=== PATIENT | female | born 1945 | race Caucasian/White ===

== ENCOUNTER 2021-04-08 11:33 | Inpatient (IN) ==
[2021-04-10] MEDS ORDERED: D5% in Water 1,000 ML IVC PRN (18:15)
[2021-04-10] MEDS ORDERED: *HR* Dextrose 50 % in Water (Syg) 50 ML SYRINGE IVP PRN (18:15)
[2021-04-10] MEDS ORDERED: Dextrose Gel 15 GM/37.5 ML TUBE PO PRN ×2 (18:15)
[2021-04-10] MEDS ORDERED: Insulin DETEMIR 100 UNIT/ML per UNIT SUBQ ONE (21:00)
[2021-04-10] MEDS: Divalproex (12 HR) 250 MG TABLET PO SCH (21:02)
[2021-04-10] MEDS: QUEtiapine Fumarate 100 MG TABLET PO SCH (21:02)
[2021-04-10] MEDS: Insulin LISPRO 300 UNITS/3 ML VIAL SUBQ SCH (21:07)
[2021-04-11] MEDS: Insulin LISPRO 300 UNITS/3 ML VIAL SUBQ SCH ×4 (08:19→20:03)
[2021-04-11 08:26] LABS: Calcium 9.1 mg/dL (8.6-10.3); Potassium 3.9 mEq/L (3.5-5.1)
[2021-04-11 08:28] LABS: Basophils % 0.5 %; Eosinophils # 0.4 K/mcL (0.0-0.6); Eosinophils % 4.9 %; Hematocrit 28.9 % (35.3-44.9); Hemoglobin 9.2 g/dL (11.5-15.4); Immature Granulocytes % 0.8 % (0-4); Lymphocytes # 2.4 K/mcL (0.6-4.6); Lymphocytes % 33.3 %; Mean Corpuscular HGB Conc 31.8 g/dL (31.6-35.5); Mean Corpuscular Hemoglobin 29.4 pg (28.0-33.3); Mean Corpuscular Volume 92.3 fL (83.0-100.0); Mean Platelet Volume 10.1 fL (9.4-12.4); Monocytes # 1.1 K/mcL (0.0-1.3); Monocytes % 15.1 %; Neutrophils # 3.3 K/mcL (1.6-8.9); Platelet Count 329 K/mcL (140-400); Red Blood Count 3.13 M/mcL (3.82-4.97); Red Cell Distribution Width 14.2 % (11.5-14.5); Segmented Neutrophils % 45.4 %; White Blood Count 7.3 K/mcL (4.3-11.1)
[2021-04-11] MEDS: Cholecalciferol (D-3) 1,000 UNIT (25MCG) TABLET PO SCH (08:38)
[2021-04-11] MEDS: *HR* Rivaroxaban 10 MG TABLET PO SCH (08:38)
[2021-04-11] MEDS: GlipiZIDE 5 MG TABLET PO SCH (08:38)
[2021-04-11] MEDS: QUEtiapine Fumarate 100 MG TABLET PO SCH ×2 (08:39→20:01)
[2021-04-11] MEDS: Ascorbic Acid 500 MG TABLET PO SCH (08:39)
[2021-04-11] MEDS: *HR* SitaGLIPtin 25 MG TABLET PO SCH (08:39)
[2021-04-11] MEDS: PARoxetine 20 MG TABLET PO SCH (08:39)
[2021-04-11] MEDS: Divalproex (12 HR) 250 MG TABLET PO SCH ×2 (08:39→20:01)
[2021-04-11] MEDS: QUEtiapine Fumarate 25 MG TABLET PO SCH (08:39)
[2021-04-11] MEDS ORDERED: *HR* Pioglitazone 30 MG TABLET PO SCH (09:00)
[2021-04-11] MEDS: *HR* Pioglitazone 15 MG TABLET PO SCH (09:06)
[2021-04-11] MEDS ORDERED: hydrALAZINE 25 MG TABLET PO PRN (15:51)
[2021-04-11] MEDS: Acetaminophen 325 MG TABLET PO PRN (16:05)
[2021-04-11] MEDS: Insulin DETEMIR 100 UNIT/ML X5UNITS SUBQ SCH (20:02)
[2021-04-12 07:56] LABS: Calcium 9.1 mg/dL (8.6-10.3); Potassium 4.4 mEq/L (3.5-5.1)
[2021-04-12] MEDS: Insulin LISPRO 300 UNITS/3 ML VIAL SUBQ SCH ×4 (08:35→20:23)
[2021-04-12] MEDS: Divalproex (12 HR) 250 MG TABLET PO SCH ×2 (08:44→20:24)
[2021-04-12] MEDS: QUEtiapine Fumarate 100 MG TABLET PO SCH ×2 (08:44→20:22)
[2021-04-12] MEDS: Cholecalciferol (D-3) 1,000 UNIT (25MCG) TABLET PO SCH (08:44)
[2021-04-12] MEDS: QUEtiapine Fumarate 25 MG TABLET PO SCH (08:44)
[2021-04-12] MEDS: *HR* Pioglitazone 15 MG TABLET PO SCH (08:45)
[2021-04-12] MEDS: Ascorbic Acid 500 MG TABLET PO SCH (08:45)
[2021-04-12] MEDS: *HR* Rivaroxaban 10 MG TABLET PO SCH (08:45)
[2021-04-12] MEDS: PARoxetine 20 MG TABLET PO SCH (08:45)
[2021-04-12] MEDS: GlipiZIDE 5 MG TABLET PO SCH (08:45)
[2021-04-12] MEDS: *HR* SitaGLIPtin 25 MG TABLET PO SCH (08:46)
[2021-04-12] MEDS: Acetaminophen 325 MG TABLET PO PRN (12:28)
[2021-04-12] MEDS: Insulin DETEMIR 100 UNIT/ML X5UNITS SUBQ SCH (20:22)
[2021-04-13] MEDS: Acetaminophen 325 MG TABLET PO PRN ×3 (00:11→17:25)
[2021-04-13] MEDS: PARoxetine 20 MG TABLET PO SCH (08:49)
[2021-04-13] MEDS: *HR* SitaGLIPtin 25 MG TABLET PO SCH (08:49)
[2021-04-13] MEDS: Ascorbic Acid 500 MG TABLET PO SCH (08:49)
[2021-04-13] MEDS: QUEtiapine Fumarate 25 MG TABLET PO SCH (08:49)
[2021-04-13] MEDS: GlipiZIDE 5 MG TABLET PO SCH (08:49)
[2021-04-13] MEDS: Insulin LISPRO 300 UNITS/3 ML VIAL SUBQ SCH ×4 (08:49→21:26)
[2021-04-13] MEDS: *HR* Pioglitazone 15 MG TABLET PO SCH (08:49)
[2021-04-13] MEDS: Divalproex (12 HR) 250 MG TABLET PO SCH ×2 (08:49→21:43)
[2021-04-13] MEDS: *HR* Rivaroxaban 10 MG TABLET PO SCH (08:50)
[2021-04-13] MEDS: Cholecalciferol (D-3) 1,000 UNIT (25MCG) TABLET PO SCH (08:50)
[2021-04-13] MEDS: QUEtiapine Fumarate 100 MG TABLET PO SCH ×2 (08:50→21:42)
[2021-04-13] MEDS ORDERED: haloperidoL 1 MG TABLET PO PRN (11:30)
[2021-04-13] MEDS ORDERED: haloperidoL 1 MG TABLET PO STA (13:04)
[2021-04-13] MEDS: haloperidoL 1 MG TABLET PO PRN (18:25)
[2021-04-13] MEDS: Insulin DETEMIR 100 UNIT/ML X5UNITS SUBQ SCH (21:43)
[2021-04-14] MEDS: Divalproex (12 HR) 250 MG TABLET PO SCH ×2 (09:20→20:09)
[2021-04-14] MEDS: *HR* Pioglitazone 15 MG TABLET PO SCH (09:20)
[2021-04-14] MEDS: Ascorbic Acid 500 MG TABLET PO SCH (09:21)
[2021-04-14] MEDS: GlipiZIDE 5 MG TABLET PO SCH (09:21)
[2021-04-14] MEDS: Cholecalciferol (D-3) 1,000 UNIT (25MCG) TABLET PO SCH (09:21)
[2021-04-14] MEDS: QUEtiapine Fumarate 25 MG TABLET PO SCH (09:21)
[2021-04-14] MEDS: *HR* SitaGLIPtin 25 MG TABLET PO SCH (09:21)
[2021-04-14] MEDS: *HR* Rivaroxaban 10 MG TABLET PO SCH (09:21)
[2021-04-14] MEDS: QUEtiapine Fumarate 100 MG TABLET PO SCH ×2 (09:21→20:09)
[2021-04-14] MEDS: PARoxetine 20 MG TABLET PO SCH (09:22)
[2021-04-14] MEDS: Insulin LISPRO 300 UNITS/3 ML VIAL SUBQ SCH ×4 (09:56→20:05)
[2021-04-14] MEDS ORDERED: polyethylene glycoL 3350 17 GM POWD.PACK PO PRN (10:18)
[2021-04-14] MEDS: Acetaminophen 325 MG TABLET PO PRN (18:05)
[2021-04-14] MEDS: haloperidoL 1 MG TABLET PO PRN (22:09)
[2021-04-14] MEDS: Insulin DETEMIR 100 UNIT/ML X5UNITS SUBQ SCH (22:11)
[2021-04-15] MEDS: QUEtiapine Fumarate 100 MG TABLET PO SCH ×2 (08:13→21:09)
[2021-04-15] MEDS: PARoxetine 20 MG TABLET PO SCH (08:13)
[2021-04-15] MEDS: Divalproex (12 HR) 250 MG TABLET PO SCH (08:13)
[2021-04-15] MEDS: GlipiZIDE 5 MG TABLET PO SCH (08:13)
[2021-04-15] MEDS: Ascorbic Acid 500 MG TABLET PO SCH (08:13)
[2021-04-15] MEDS: Cholecalciferol (D-3) 1,000 UNIT (25MCG) TABLET PO SCH (08:13)
[2021-04-15] MEDS: *HR* Pioglitazone 15 MG TABLET PO SCH (08:13)
[2021-04-15] MEDS: *HR* SitaGLIPtin 25 MG TABLET PO SCH (08:14)
[2021-04-15] MEDS: *HR* Rivaroxaban 10 MG TABLET PO SCH (08:14)
[2021-04-15] MEDS: QUEtiapine Fumarate 25 MG TABLET PO SCH (08:14)
[2021-04-15] MEDS: Insulin LISPRO 300 UNITS/3 ML VIAL SUBQ SCH ×4 (08:19→21:13)
[2021-04-15 08:54] LABS: Basophils # 0.1 K/mcL (0.0-0.2); Basophils % 0.8 %; Eosinophils # 0.2 K/mcL (0.0-0.6); Eosinophils % 3.6 %; Hematocrit 31.9 % (35.3-44.9); Hemoglobin 10.1 g/dL (11.5-15.4); Immature Granulocytes % 0.5 % (0-4); Lymphocytes # 1.9 K/mcL (0.6-4.6); Lymphocytes % 29.3 %; Mean Corpuscular HGB Conc 31.7 g/dL (31.6-35.5); Mean Corpuscular Hemoglobin 29.8 pg (28.0-33.3); Mean Corpuscular Volume 94.1 fL (83.0-100.0); Mean Platelet Volume 10.3 fL (9.4-12.4); Monocytes # 0.8 K/mcL (0.0-1.3); Monocytes % 12.2 %; Neutrophils # 3.5 K/mcL (1.6-8.9); Platelet Count 358 K/mcL (140-400); Red Blood Count 3.39 M/mcL (3.82-4.97); Red Cell Distribution Width 14.8 % (11.5-14.5); Segmented Neutrophils % 53.6 %; White Blood Count 6.5 K/mcL (4.3-11.1)
[2021-04-15 09:14] LABS: Calcium 9.2 mg/dL (8.6-10.3); Potassium 4.2 mEq/L (3.5-5.1)
[2021-04-15] MEDS: Acetaminophen 325 MG TABLET PO PRN (12:14)
[2021-04-15] MEDS: haloperidoL 1 MG TABLET PO PRN (12:15)
[2021-04-15] MEDS: Insulin DETEMIR 100 UNIT/ML X5UNITS SUBQ SCH (21:12)
[2021-04-16] MEDS: Divalproex (12 HR) 250 MG TABLET PO SCH ×3 (00:34→20:03)
[2021-04-16] MEDS: Insulin LISPRO 300 UNITS/3 ML VIAL SUBQ SCH ×4 (09:45→20:21)
[2021-04-16] MEDS: PARoxetine 20 MG TABLET PO SCH (09:46)
[2021-04-16] MEDS: Ascorbic Acid 500 MG TABLET PO SCH (09:46)
[2021-04-16] MEDS: *HR* SitaGLIPtin 25 MG TABLET PO SCH (09:46)
[2021-04-16] MEDS: QUEtiapine Fumarate 100 MG TABLET PO SCH ×2 (09:46→20:02)
[2021-04-16] MEDS: Cholecalciferol (D-3) 1,000 UNIT (25MCG) TABLET PO SCH (09:46)
[2021-04-16] MEDS: QUEtiapine Fumarate 25 MG TABLET PO SCH (09:46)
[2021-04-16] MEDS: *HR* Rivaroxaban 10 MG TABLET PO SCH (09:46)
[2021-04-16] MEDS: *HR* Pioglitazone 15 MG TABLET PO SCH (09:47)
[2021-04-16] MEDS: GlipiZIDE 5 MG TABLET PO SCH (09:47)
[2021-04-16] MEDS: haloperidoL 1 MG TABLET PO PRN (11:56)
[2021-04-16] MEDS: Acetaminophen 325 MG TABLET PO PRN (14:05)
[2021-04-16] MEDS: Insulin DETEMIR 100 UNIT/ML X5UNITS SUBQ SCH (20:03)
[2021-04-17] MEDS: Insulin LISPRO 300 UNITS/3 ML VIAL SUBQ SCH ×4 (10:21→21:15)
[2021-04-17] MEDS: *HR* SitaGLIPtin 25 MG TABLET PO SCH (10:21)
[2021-04-17] MEDS: QUEtiapine Fumarate 25 MG TABLET PO SCH (10:22)
[2021-04-17] MEDS: Divalproex (12 HR) 250 MG TABLET PO SCH ×2 (10:22→21:14)
[2021-04-17] MEDS: GlipiZIDE 5 MG TABLET PO SCH (10:22)
[2021-04-17] MEDS: Cholecalciferol (D-3) 1,000 UNIT (25MCG) TABLET PO SCH (10:22)
[2021-04-17] MEDS: QUEtiapine Fumarate 100 MG TABLET PO SCH ×2 (10:22→21:14)
[2021-04-17] MEDS: *HR* Pioglitazone 15 MG TABLET PO SCH (10:22)
[2021-04-17] MEDS: PARoxetine 20 MG TABLET PO SCH (10:22)
[2021-04-17] MEDS: Ascorbic Acid 500 MG TABLET PO SCH (10:22)
[2021-04-17] MEDS: *HR* Rivaroxaban 10 MG TABLET PO SCH (10:22)
[2021-04-17] MEDS: Acetaminophen 325 MG TABLET PO PRN ×2 (12:33→19:01)
[2021-04-17] MEDS: haloperidoL 1 MG TABLET PO PRN ×2 (12:33→19:56)
[2021-04-17] MEDS: Insulin DETEMIR 100 UNIT/ML X5UNITS SUBQ SCH (21:15)
[2021-04-18] MEDS: Insulin LISPRO 300 UNITS/3 ML VIAL SUBQ SCH ×4 (07:57→20:38)
[2021-04-18] MEDS: Divalproex (12 HR) 250 MG TABLET PO SCH ×2 (10:45→20:37)
[2021-04-18] MEDS: *HR* Pioglitazone 15 MG TABLET PO SCH (10:45)
[2021-04-18] MEDS: GlipiZIDE 5 MG TABLET PO SCH (10:45)
[2021-04-18] MEDS: Cholecalciferol (D-3) 1,000 UNIT (25MCG) TABLET PO SCH (10:45)
[2021-04-18] MEDS: *HR* SitaGLIPtin 25 MG TABLET PO SCH (10:45)
[2021-04-18] MEDS: QUEtiapine Fumarate 100 MG TABLET PO SCH ×2 (10:46→20:37)
[2021-04-18] MEDS: PARoxetine 20 MG TABLET PO SCH (10:46)
[2021-04-18] MEDS: *HR* Rivaroxaban 10 MG TABLET PO SCH (10:46)
[2021-04-18] MEDS: Ascorbic Acid 500 MG TABLET PO SCH (10:46)
[2021-04-18] MEDS: QUEtiapine Fumarate 25 MG TABLET PO SCH (10:46)
[2021-04-18] MEDS: Acetaminophen 325 MG TABLET PO PRN (17:30)
[2021-04-18] MEDS: haloperidoL 1 MG TABLET PO PRN (20:37)
[2021-04-18] MEDS: Insulin DETEMIR 100 UNIT/ML X5UNITS SUBQ SCH (20:39)
[2021-04-19] MEDS: Insulin LISPRO 300 UNITS/3 ML VIAL SUBQ SCH ×4 (08:30→20:00)
[2021-04-19] MEDS: Divalproex (12 HR) 250 MG TABLET PO SCH ×2 (08:59→20:02)
[2021-04-19] MEDS: Cholecalciferol (D-3) 1,000 UNIT (25MCG) TABLET PO SCH (08:59)
[2021-04-19] MEDS: Ascorbic Acid 500 MG TABLET PO SCH (09:00)
[2021-04-19] MEDS: *HR* SitaGLIPtin 25 MG TABLET PO SCH (09:00)
[2021-04-19] MEDS: *HR* Rivaroxaban 10 MG TABLET PO SCH (09:00)
[2021-04-19] MEDS: *HR* Pioglitazone 15 MG TABLET PO SCH (09:00)
[2021-04-19] MEDS: QUEtiapine Fumarate 100 MG TABLET PO SCH ×2 (09:01→20:02)
[2021-04-19] MEDS: PARoxetine 20 MG TABLET PO SCH (09:01)
[2021-04-19] MEDS: GlipiZIDE 5 MG TABLET PO SCH (09:01)
[2021-04-19] MEDS: QUEtiapine Fumarate 25 MG TABLET PO SCH (09:01)
[2021-04-19] MEDS: Acetaminophen 325 MG TABLET PO PRN (16:47)
[2021-04-19] MEDS: Insulin DETEMIR 100 UNIT/ML X5UNITS SUBQ SCH (19:57)
[2021-04-19] MEDS: haloperidoL 1 MG TABLET PO PRN (20:02)
[2021-04-20] MEDS: Insulin LISPRO 300 UNITS/3 ML VIAL SUBQ SCH ×4 (07:57→20:16)
[2021-04-20] MEDS: Ascorbic Acid 500 MG TABLET PO SCH (07:57)
[2021-04-20] MEDS: Cholecalciferol (D-3) 1,000 UNIT (25MCG) TABLET PO SCH (07:58)
[2021-04-20] MEDS: *HR* Pioglitazone 15 MG TABLET PO SCH (07:58)
[2021-04-20] MEDS: Divalproex (12 HR) 250 MG TABLET PO SCH ×2 (07:58→19:55)
[2021-04-20] MEDS: QUEtiapine Fumarate 25 MG TABLET PO SCH (07:58)
[2021-04-20] MEDS: *HR* Rivaroxaban 10 MG TABLET PO SCH (07:58)
[2021-04-20] MEDS: GlipiZIDE 5 MG TABLET PO SCH (07:58)
[2021-04-20] MEDS: *HR* SitaGLIPtin 25 MG TABLET PO SCH (07:58)
[2021-04-20] MEDS: QUEtiapine Fumarate 100 MG TABLET PO SCH ×2 (07:58→19:55)
[2021-04-20] MEDS: PARoxetine 20 MG TABLET PO SCH (07:58)
[2021-04-20] MEDS: Acetaminophen 325 MG TABLET PO PRN ×2 (16:36→23:28)
[2021-04-20] MEDS: Insulin DETEMIR 100 UNIT/ML X5UNITS SUBQ SCH (19:55)
[2021-04-20] MEDS: haloperidoL 1 MG TABLET PO PRN (19:55)
[2021-04-21] MEDS: QUEtiapine Fumarate 100 MG TABLET PO SCH ×2 (08:16→20:05)
[2021-04-21] MEDS: PARoxetine 20 MG TABLET PO SCH (08:16)
[2021-04-21] MEDS: *HR* Rivaroxaban 10 MG TABLET PO SCH (08:16)
[2021-04-21] MEDS: Ascorbic Acid 500 MG TABLET PO SCH (08:16)
[2021-04-21] MEDS: GlipiZIDE 5 MG TABLET PO SCH (08:16)
[2021-04-21] MEDS: Cholecalciferol (D-3) 1,000 UNIT (25MCG) TABLET PO SCH (08:17)
[2021-04-21] MEDS: Divalproex (12 HR) 250 MG TABLET PO SCH ×2 (08:17→20:04)
[2021-04-21] MEDS: QUEtiapine Fumarate 25 MG TABLET PO SCH (08:17)
[2021-04-21] MEDS: *HR* SitaGLIPtin 25 MG TABLET PO SCH (08:17)
[2021-04-21] MEDS: *HR* Pioglitazone 15 MG TABLET PO SCH (08:17)
[2021-04-21] MEDS: Insulin LISPRO 300 UNITS/3 ML VIAL SUBQ SCH ×4 (08:58→20:15)
[2021-04-21] MEDS: Acetaminophen 325 MG TABLET PO PRN ×2 (12:34→20:04)
[2021-04-21] MEDS: haloperidoL 1 MG TABLET PO PRN (20:05)
[2021-04-21] MEDS: Insulin DETEMIR 100 UNIT/ML X5UNITS SUBQ SCH (20:09)
[2021-04-22] MEDS: *HR* Rivaroxaban 10 MG TABLET PO SCH (09:19)
[2021-04-22] MEDS: Divalproex (12 HR) 250 MG TABLET PO SCH ×2 (09:19→21:20)
[2021-04-22] MEDS: Insulin LISPRO 300 UNITS/3 ML VIAL SUBQ SCH ×4 (09:19→21:21)
[2021-04-22] MEDS: Ascorbic Acid 500 MG TABLET PO SCH (09:19)
[2021-04-22] MEDS: QUEtiapine Fumarate 100 MG TABLET PO SCH ×2 (09:20→21:20)
[2021-04-22] MEDS: PARoxetine 20 MG TABLET PO SCH (09:20)
[2021-04-22] MEDS: GlipiZIDE 5 MG TABLET PO SCH (09:20)
[2021-04-22] MEDS: Cholecalciferol (D-3) 1,000 UNIT (25MCG) TABLET PO SCH (09:20)
[2021-04-22] MEDS: *HR* SitaGLIPtin 25 MG TABLET PO SCH (09:20)
[2021-04-22] MEDS: QUEtiapine Fumarate 25 MG TABLET PO SCH (09:20)
[2021-04-22] MEDS: *HR* Pioglitazone 15 MG TABLET PO SCH (09:20)
[2021-04-22] MEDS: haloperidoL 1 MG TABLET PO PRN (16:15)
[2021-04-22] MEDS: Acetaminophen 325 MG TABLET PO PRN (21:20)
[2021-04-22] MEDS: Insulin DETEMIR 100 UNIT/ML X5UNITS SUBQ SCH (21:26)
[2021-04-23] MEDS: Insulin LISPRO 300 UNITS/3 ML VIAL SUBQ SCH ×4 (07:36→20:21)
[2021-04-23] MEDS: *HR* Pioglitazone 15 MG TABLET PO SCH (09:22)
[2021-04-23] MEDS: QUEtiapine Fumarate 100 MG TABLET PO SCH ×2 (09:23→20:10)
[2021-04-23] MEDS: *HR* SitaGLIPtin 25 MG TABLET PO SCH (09:23)
[2021-04-23] MEDS: Divalproex (12 HR) 250 MG TABLET PO SCH ×2 (09:23→20:13)
[2021-04-23] MEDS: GlipiZIDE 5 MG TABLET PO SCH (09:23)
[2021-04-23] MEDS: Ascorbic Acid 500 MG TABLET PO SCH (09:23)
[2021-04-23] MEDS: QUEtiapine Fumarate 25 MG TABLET PO SCH (09:24)
[2021-04-23] MEDS: PARoxetine 20 MG TABLET PO SCH (09:24)
[2021-04-23] MEDS: Cholecalciferol (D-3) 1,000 UNIT (25MCG) TABLET PO SCH (09:24)
[2021-04-23] MEDS: *HR* Rivaroxaban 10 MG TABLET PO SCH (09:24)
[2021-04-23] MEDS: Acetaminophen 325 MG TABLET PO PRN ×2 (09:28→20:14)
[2021-04-23] MEDS: haloperidoL 1 MG TABLET PO PRN (09:28)
[2021-04-23] MEDS: haloperidoL 1 MG TABLET PO SCH ×3 (12:30→20:14)
[2021-04-23] MEDS: Insulin DETEMIR 100 UNIT/ML X5UNITS SUBQ SCH (22:46)
[2021-04-24] MEDS: Insulin LISPRO 300 UNITS/3 ML VIAL SUBQ SCH ×4 (08:05→20:11)
[2021-04-24] MEDS: *HR* Pioglitazone 15 MG TABLET PO SCH (08:11)
[2021-04-24] MEDS: PARoxetine 20 MG TABLET PO SCH (08:11)
[2021-04-24] MEDS: QUEtiapine Fumarate 100 MG TABLET PO SCH ×2 (08:11→20:11)
[2021-04-24] MEDS: *HR* SitaGLIPtin 25 MG TABLET PO SCH (08:11)
[2021-04-24] MEDS: Divalproex (12 HR) 250 MG TABLET PO SCH ×2 (08:11→20:09)
[2021-04-24] MEDS: Acetaminophen 325 MG TABLET PO PRN (08:11)
[2021-04-24] MEDS: Ascorbic Acid 500 MG TABLET PO SCH (08:11)
[2021-04-24] MEDS: QUEtiapine Fumarate 25 MG TABLET PO SCH (08:12)
[2021-04-24] MEDS: haloperidoL 1 MG TABLET PO SCH ×4 (08:12→20:11)
[2021-04-24] MEDS: GlipiZIDE 5 MG TABLET PO SCH (08:12)
[2021-04-24] MEDS: Cholecalciferol (D-3) 1,000 UNIT (25MCG) TABLET PO SCH (08:12)
[2021-04-24] MEDS: *HR* Rivaroxaban 10 MG TABLET PO SCH (08:12)
[2021-04-24] MEDS ORDERED: Ziprasidone 10 MG in Water for inj. (sterile) 0.5 ML IM ONE (13:33)
[2021-04-24] MEDS: Insulin DETEMIR 100 UNIT/ML X5UNITS SUBQ SCH (20:21)
[2021-04-25] MEDS: Insulin LISPRO 300 UNITS/3 ML VIAL SUBQ SCH ×4 (08:13→19:53)
[2021-04-25] MEDS: Divalproex (12 HR) 250 MG TABLET PO SCH ×2 (08:22→19:52)
[2021-04-25] MEDS: *HR* Rivaroxaban 10 MG TABLET PO SCH (08:23)
[2021-04-25] MEDS: Ascorbic Acid 500 MG TABLET PO SCH (08:23)
[2021-04-25] MEDS: QUEtiapine Fumarate 100 MG TABLET PO SCH ×2 (08:23→19:53)
[2021-04-25] MEDS: Cholecalciferol (D-3) 1,000 UNIT (25MCG) TABLET PO SCH (08:23)
[2021-04-25] MEDS: QUEtiapine Fumarate 25 MG TABLET PO SCH (08:23)
[2021-04-25] MEDS: *HR* Pioglitazone 15 MG TABLET PO SCH (08:24)
[2021-04-25] MEDS: *HR* SitaGLIPtin 25 MG TABLET PO SCH (08:24)
[2021-04-25] MEDS: Acetaminophen 325 MG TABLET PO PRN (08:24)
[2021-04-25] MEDS: haloperidoL 1 MG TABLET PO SCH ×4 (08:24→19:53)
[2021-04-25] MEDS: PARoxetine 20 MG TABLET PO SCH (08:24)
[2021-04-25] MEDS: GlipiZIDE 5 MG TABLET PO SCH (08:24)
[2021-04-25] MEDS: Insulin DETEMIR 100 UNIT/ML X5UNITS SUBQ SCH (19:53)
[2021-04-26] MEDS: Insulin LISPRO 300 UNITS/3 ML VIAL SUBQ SCH ×4 (07:29→20:07)
[2021-04-26] MEDS: *HR* Pioglitazone 15 MG TABLET PO SCH (07:37)
[2021-04-26] MEDS: haloperidoL 1 MG TABLET PO SCH ×4 (07:37→20:07)
[2021-04-26] MEDS: QUEtiapine Fumarate 25 MG TABLET PO SCH (07:37)
[2021-04-26] MEDS: QUEtiapine Fumarate 100 MG TABLET PO SCH ×2 (07:37→20:06)
[2021-04-26] MEDS: *HR* SitaGLIPtin 25 MG TABLET PO SCH (07:37)
[2021-04-26] MEDS: *HR* Rivaroxaban 10 MG TABLET PO SCH (07:37)
[2021-04-26] MEDS: GlipiZIDE 5 MG TABLET PO SCH (07:37)
[2021-04-26] MEDS: Divalproex (12 HR) 250 MG TABLET PO SCH ×2 (07:37→20:06)
[2021-04-26] MEDS: Cholecalciferol (D-3) 1,000 UNIT (25MCG) TABLET PO SCH (07:37)
[2021-04-26] MEDS: Ascorbic Acid 500 MG TABLET PO SCH (07:37)
[2021-04-26] MEDS: PARoxetine 20 MG TABLET PO SCH (07:38)
[2021-04-26] MEDS: Acetaminophen 325 MG TABLET PO PRN (11:47)
[2021-04-26] MEDS: Insulin DETEMIR 100 UNIT/ML X5UNITS SUBQ SCH (20:07)
[2021-04-27] MEDS: Insulin LISPRO 300 UNITS/3 ML VIAL SUBQ SCH ×4 (08:01→19:34)
[2021-04-27] MEDS: *HR* Rivaroxaban 10 MG TABLET PO SCH (09:54)
[2021-04-27] MEDS: *HR* Pioglitazone 15 MG TABLET PO SCH (09:54)
[2021-04-27] MEDS: haloperidoL 1 MG TABLET PO SCH ×4 (09:54→19:32)
[2021-04-27] MEDS: Cholecalciferol (D-3) 1,000 UNIT (25MCG) TABLET PO SCH (09:54)
[2021-04-27] MEDS: QUEtiapine Fumarate 25 MG TABLET PO SCH (09:54)
[2021-04-27] MEDS: QUEtiapine Fumarate 100 MG TABLET PO SCH ×2 (09:54→19:32)
[2021-04-27] MEDS: Ascorbic Acid 500 MG TABLET PO SCH (09:54)
[2021-04-27] MEDS: *HR* SitaGLIPtin 25 MG TABLET PO SCH (09:54)
[2021-04-27] MEDS: GlipiZIDE 5 MG TABLET PO SCH (09:54)
[2021-04-27] MEDS: Divalproex (12 HR) 250 MG TABLET PO SCH ×2 (09:54→19:32)
[2021-04-27] MEDS: PARoxetine 20 MG TABLET PO SCH (09:54)
[2021-04-27] MEDS: Acetaminophen 325 MG TABLET PO PRN (19:32)
[2021-04-27] MEDS: Insulin DETEMIR 100 UNIT/ML X5UNITS SUBQ SCH (19:33)
[2021-04-28 08:48] VITALS: BP 156/79; PULSE 111; RESP 19; TEMP 98.2; O2SAT 95
[2021-04-28] MEDS: Insulin LISPRO 300 UNITS/3 ML VIAL SUBQ SCH ×2 (08:54→12:22)
[2021-04-28] MEDS: GlipiZIDE 5 MG TABLET PO SCH (09:39)
[2021-04-28] MEDS: *HR* SitaGLIPtin 25 MG TABLET PO SCH (09:39)
[2021-04-28] MEDS: Divalproex (12 HR) 250 MG TABLET PO SCH (09:39)
[2021-04-28] MEDS: QUEtiapine Fumarate 25 MG TABLET PO SCH (09:40)
[2021-04-28] MEDS: QUEtiapine Fumarate 100 MG TABLET PO SCH (09:40)
[2021-04-28] MEDS: PARoxetine 20 MG TABLET PO SCH (09:40)
[2021-04-28] MEDS: Cholecalciferol (D-3) 1,000 UNIT (25MCG) TABLET PO SCH (09:40)
[2021-04-28] MEDS: *HR* Pioglitazone 15 MG TABLET PO SCH (09:40)
[2021-04-28] MEDS: haloperidoL 1 MG TABLET PO SCH ×2 (09:40→12:22)
[2021-04-28] MEDS: *HR* Rivaroxaban 10 MG TABLET PO SCH (09:40)
[2021-04-28] MEDS: Ascorbic Acid 500 MG TABLET PO SCH (09:42)
[2021-04-28] MEDS ORDERED: FLU Vac QV 21-22 (6Month+)/PF 0.5 ML SYRINGE IM ONE (11:41)
== END 2021-04-28 12:50 | disposition home or self-care (01) | DRG 560 ==
LOC: INPPIK 04-10 17:27
PROVIDERS: ADMIT Family Medicine; ATTEND Family Medicine